=== PATIENT | male | born 1995 ===

== ENCOUNTER 2016-12-04 14:20 | Emergency (ER) | payer SELFPAY ==
[2016-12-04 14:39] VITALS: BP 118/71
[2016-12-04] MEDS ORDERED: Sodium Chloride 0.9% 10 ML Syringe FLUSH PRN (14:56)
[2016-12-04] MEDS ORDERED: Sodium Chloride 0.9% 1,000 ML IV ONE (14:57)
[2016-12-04] MEDS ORDERED: Ketorolac 30 MG/ML SDV IVPUSH ONE (14:57)
--- NOTE | 2016-12-04 15:05 | EDM.PDOC ---
ED HPI GENERAL MEDICAL PROBLEM - General Chief Complaint: General Stated Complaint: COUGH,ACHY JOINTS, LETHARGIC Time Seen by Provider: 12/04/16 14:45 Source of Information: Reports: Patient History Limitations: Reports: No Limitations - History of Present Illness INITIAL COMMENTS - FREE TEXT/NARRATIVE: 21-year-old male presents for evaluation treatment of a cough, headaches, body aches, fatigue and fever. Reports that his symptoms have been going on for the last 4 days. Does not feel that the symptoms are improving. He was seen at the walk-in clinic and sent over to us for further care. Currently symptoms including headache, fevers, body aches, joint aches, fatigue, cough, nausea, diarrhea and headaches. States he's tried [id number] medications without much symptom relief. Patient reports that he has not taken his temperature but has felt warm. Reports that he had diarrhea for 2 days but this is now resolved. Patient reports soreness to the anterior lateral neck. No decreased range of motion of the neck. Denies any vomiting, ear pain Patient denies any recent travel. He reports that his girlfriend is currently becoming ill with similar symptoms. States he has had mono in the past but that was much worse than his symptoms today. 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 Headache Pain Score (Numeric/FACES): 6 - Related Data Allergies Allergy/AdvReac Type Severity Reaction Status Date / Time No Known Allergies Allergy Verified 07/01/16 16:13 Home Meds: Home Meds Azithromycin [IMW: Azithromycin] 250 mg PO DAILY #6 tab 12/04/16 [Rx] Past Medical History - Past Health History Medical/Surgical History: Denies Medical/Surgical History - Infectious Disease History Infectious Disease History: Reports: Mononucleosis Social & Family History - Family History Family Medical History: Noncontributory - Tobacco Use Smoking Status *Q: Never Smoker Years of Tobacco use: 3 Packs/Tins Daily: 0.3 - Caffeine Use Caffeine Use: Reports: None - Recreational Drug Use Recreational Drug Use: No ED ROS GENERAL - Review of Systems Review Of Systems: See Below Constitutional: Reports: Fever (has not taken temp but has felt warm), Malaise, Fatigue, Diaphoresis, Other (reports body aches) HEENT: Denies: Ear Pain, Throat Pain Respiratory: Reports: Cough. Denies: Sputum Endocrine: Reports: Fatigue GI/Abdominal: Reports: Diarrhea (x2 days, now resolved), Nausea. Denies: Vomiting Musculoskeletal: Reports: Neck Pain (lateral neck soreness), Joint Pain. Denies : Joint Swelling Skin: Denies: Rash Neurological: Reports: Headache ED EXAM, GENERAL - Physical Exam Exam: See Below Exam Limited By: No Limitations General Appearance: Alert, WD/WN, No Apparent Distress Eye Exam: Bilateral Eye: Normal Inspection Ears: Normal External Exam, Normal Canal, Normal TMs Nose: Normal Inspection Throat/Mouth: Normal Inspection, Normal Lips, Normal Oropharynx, Normal Voice, No Airway Compromise Head: Atraumatic, Normocephalic Neck: Normal Inspection, Supple, Non-Tender, Full Range of Motion Respiratory/Chest: No Respiratory Distress, Lungs Clear, Normal Breath Sounds Cardiovascular: Normal Peripheral Pulses, Regular Rate, Rhythm, No Murmur Peripheral Pulses: 2+: Radial (L), Radial (R) GI/Abdominal: Normal Bowel Sounds, Soft, Non-Tender Extremities: Normal Inspection Neurological: Alert, Oriented, Normal Cognition Psychiatric: Normal Affect, Normal Mood Skin Exam: Diaphoretic, Increased Warmth Course - Vital Signs Last Recorded V/S: Last Vital Signs Temp 37.7 C 12/04/16 14:36 Pulse 94 12/04/16 14:36 Resp 18 12/04/16 14:36 BP 118/71 12/04/16 14:36 Pulse Ox 96 12/04/16 14:36 - Orders/Labs/Meds Labs: Laboratory Tests 12/04/16 12/04/16 12/04/16 Range/Units 15:20 15:20 15:20 WBC 11.54 H (4.23-9.07) K/mm3 RBC 4.91 (4.63-6.08) M/mm3 Hgb 15.7 (13.7-17.5) gm/L Hct 44.0 (40.1-51.0) % MCV 89.6 (79.0-92.2) fl MCH 32.0 (25.7-32.2) pg MCHC 35.7 H (32.2-35.5) g/dl RDW Std Deviation 39.4 (35.1-43.9) fL Plt Count 142 L (163-337) K/mm3 MPV 10.7 (9.4-12.3) fl Neutrophils % (Manual) 89 H (40-60) % Band Neutrophils % 0 (0-10) % Lymphocytes % (Manual) 7 L (20-40) % Atypical Lymphs % 0 % Monocytes % (Manual) 4 (2-10) % Eosinophils % (Manual) 0 L (0.8-7.0) % Basophils % (Manual) 0 L (0.2-1.2) Platelet Estimate Adequate Plt Morphology Comment Normal RBC Morph Comment Normal Sodium 135 L (136-145) mEq/L Potassium 3.6 (3.5-5.1) mEq/L Chloride 99 (98-107) mEq/L Carbon Dioxide 26 (21-32) mEq/L Anion Gap 13.6 (5-15) BUN 8 (7-18) mg/dL Creatinine 1.2 (0.7-1.3) mg/dL Est Cr Clr Drug Dosing 88.71 mL/min Estimated GFR (MDRD) > 60 (>60) mL/min BUN/Creatinine Ratio 6.7 L (14-18) Glucose 90 (74-106) mg/dL Calcium 8.8 (8.5-10.1) mg/dL Total Bilirubin 1.0 (0.2-1.0) mg/dL AST 20 (15-37) U/L ALT 21 (16-63) U/L Alkaline Phosphatase 90 (46-116) U/L C-Reactive Protein 7.9 H* (<1.0) mg/dL Total Protein 7.7 (6.4-8.2) g/dl Albumin 4.1 (3.4-5.0) g/dl Globulin 3.6 gm/dL Albumin/Globulin Ratio 1.1 (1-2) Urine Color (Yellow) Urine Appearance (Clear) Urine pH (5.0-8.0) Ur Specific [place] (1.005-1.030) Urine Protein (Negative) Urine Glucose (UA) (Negative) Urine Ketones (Negative) Urine Occult Blood (Negative) Urine Nitrite (Negative) Urine Bilirubin (Negative) Urine Urobilinogen (0.2-1.0) Ur Leukocyte Esterase (Negative) Urine RBC (0-5) /hpf Urine WBC (0-5) /hpf Ur Epithelial Cells (0-5) /hpf Urine Bacteria (FEW) /hpf Urine Mucus (FEW) /hpf Monoscreen Negative (NEGATIVE) 12/04/16 Range/Units 16:00 WBC (4.23-9.07) K/mm3 RBC (4.63-6.08) M/mm3 Hgb (13.7-17.5) gm/L Hct (40.1-51.0) % MCV (79.0-92.2) fl MCH (25.7-32.2) pg MCHC (32.2-35.5) g/dl RDW Std Deviation (35.1-43.9) fL Plt Count (163-337) K/mm3 MPV (9.4-12.3) fl Neutrophils % (Manual) (40-60) % Band Neutrophils % (0-10) % Lymphocytes % (Manual) (20-40) % Atypical Lymphs % % Monocytes % (Manual) (2-10) % Eosinophils % (Manual) (0.8-7.0) % Basophils % (Manual) (0.2-1.2) Platelet Estimate Plt Morphology Comment RBC Morph Comment Sodium (136-145) mEq/L Potassium (3.5-5.1) mEq/L Chloride (98-107) mEq/L Carbon Dioxide (21-32) mEq/L Anion Gap (5-15) BUN (7-18) mg/dL Creatinine (0.7-1.3) mg/dL Est Cr Clr Drug Dosing mL/min Estimated GFR (MDRD) (>60) mL/min BUN/Creatinine Ratio (14-18) Glucose (74-106) mg/dL Calcium (8.5-10.1) mg/dL Total Bilirubin (0.2-1.0) mg/dL AST (15-37) U/L ALT (16-63) U/L Alkaline Phosphatase (46-116) U/L C-Reactive Protein (<1.0) mg/dL Total Protein (6.4-8.2) g/dl Albumin (3.4-5.0) g/dl Globulin gm/dL Albumin/Globulin Ratio (1-2) Urine Color Dark yellow (Yellow) Urine Appearance Clear (Clear) Urine pH 7.5 (5.0-8.0) Ur Specific [place] 1.020 (1.005-1.030) Urine Protein 2+ H (Negative) Urine Glucose (UA) Trace H (Negative) Urine Ketones Negative (Negative) Urine Occult Blood Negative (Negative) Urine Nitrite Negative (Negative) Urine Bilirubin 1+ H (Negative) Urine Urobilinogen 1.0 (0.2-1.0) Ur Leukocyte Esterase Negative (Negative) Urine RBC 0-5 (0-5) /hpf Urine WBC 0-5 (0-5) /hpf Ur Epithelial Cells 0-5 (0-5) /hpf Urine Bacteria Few (FEW) /hpf Urine Mucus Few (FEW) /hpf Monoscreen (NEGATIVE) Meds: Medications Discontinued Medications Generic Name Dose Route Start Last Admin Trade Name Freq PRN Reason Stop Dose Admin Sodium Chloride 1,000 mls @ 999 mls/hr 12/04/16 14:57 12/04/16 15:33 Normal Saline IV 12/04/16 15:57 999 mls/hr ONETIME ONE Administration Ketorolac Tromethamine 30 mg 12/04/16 14:57 12/04/16 15:34 Toradol IVPUSH 12/04/16 14:58 30 mg ONETIME ONE Administration Sodium Chloride 10 ml 12/04/16 14:56 12/04/16 15:34 Saline Flush FLUSH 10 ml ASDIRECTED PRN Administration Keep Vein Open - Radiology Interpretation Free Text/Narrative:: chest 2 view shows no acute intrathoracic process. reviewed by myself and Dr. Evans - Re-Assessments/Exams Free Text/Narrative Re-Assessment/Exam: 12/04/16 16:57 Labs returned wbc is 11.54, hgb is 15.7 and plts are 142 CRP is 7.9 sodium is 135, potassium is 3.6 and chloride is 99. anion gap is 13.6. glucose is 90 mono is negative rapid strep is negative UA has 2+ protein, trace glucose and 1+ bili discussed the case with Dr. Evans. recommends treating for bronchitis. patient feels improved after fluids and toradol will discharge home at this time. Discharge instructions as documented. Departure - Departure Time of Disposition: 16:59 Disposition: Home, Self-Care 01 Condition: Fair Clinical Impression: Bronchitis - Discharge Information Prescriptions: Azithromycin [IMW: Azithromycin] 250 mg PO DAILY #6 tab Instructions: Acute Bronchitis, [id number] Referrals: PCP,None [Primary Care Provider] - Adelaide Croft PA-C [Physician [employer]] - Forms: ED Department Discharge, ED Return to Work/School Form Additional Instructions: Go home and rest. Make sure you're drinking plenty of fluids. Take [id number] Tylenol or Motrin as needed for pain and fever relief. Take the azithromycin as prescribed. 2 tabs on day 1 followed by 1 tablet on days 2 through 5 for 5 days of antibiotic total. Follow-up with family medicine if you are not much better in 7-10 days. Recommend Sue Croft. Call [phone] to schedule with her. Note for work. Please return to the ER if your symptoms change or worsen.
--- NOTE | 2016-12-05 07:33 | CR ---
Chest: Two views of the chest were obtained. Comparison: Previous chest x-ray of 07/01/16. Heart size and mediastinum are normal. Lungs are clear. Bony structures appear within normal limits for the patient's age. Impression: 1. Nothing acute is identified on two-view chest x-ray. No significant change is seen from prior chest x-ray. Diagnostic code #1
== END 2016-12-04 17:15 | disposition home or self-care (01) ==
LOC: JD.ED 14:20
DX: J40 Bronchitis, not specified as acute or chronic (principal); Z79.2 Long term (current) use of antibiotics
CPT/HCPCS: 36415; 71020; 80053; 81001; 85025; 86140; 86308; 87081; 87430; 96361; 96374; 99284; J1885; J7040; J7050